=== PATIENT | female | born 1960 | race African-American/Black ===

== ENCOUNTER 2021-05-01 08:30 | Day surgery (SDC) | payer OTHER ==
[2021-04-30 17:22] VITALS: BMI 31.7
[2021-05-01 10:30] VITALS: TEMP 98
[2021-05-01 10:32] VITALS: BP 135/75; PULSE 81
== END 2021-05-01 10:56 | disposition home or self-care (01) ==
LOC: FASU-ENDO 08:30
PROVIDERS: ATTEND Internal Medicine Gastroenterology
PROC: 0DJ08ZZ Inspection of Upper Intestinal Tract, Via Natural or Artificial Opening Endoscopic (ICD-10-PCS; principal; 2021-05-01 09:53)
DX: R10.13 Epigastric pain (principal); R68.81 Early satiety
CPT/HCPCS: 82962